=== PATIENT | male | born 1990 | race Caucasian/White ===

== ENCOUNTER → 2016-10-21 | Outpatient (CLI) | payer SELFPAY | LOC: M WUC 13:26 | PROVIDERS: ATTEND Physician Assistant | DX: Z11.3 Encounter for screening for infections with a predominantly sexual mode of transmission (principal) ==

== ENCOUNTER → 2017-06-09 | Outpatient (REF) | payer SELFPAY ==
[2017-06-09 22:35] LABS: CHLAMYDIA DNA AMPLIFICATION NEGATIVE (NEGATIVE); GC DNA AMPLIFICATION NEGATIVE (NEGATIVE)
== END ==
LOC: M LAB REF 19:00
DX: Z11.3 Encounter for screening for infections with a predominantly sexual mode of transmission (principal)